=== PATIENT | male | born 1995 | race Caucasian/White ===

== ENCOUNTER 2019-08-24 22:02 | Emergency (ER) | payer SELFPAY ==
[2019-08-24] MEDS ORDERED: SULFAMETHOXAZOLE/TRIMETHOPRIM 800-160 MG TABLET PO ONE (23:08)
--- NOTE | 2019-08-24 23:37 | RADIOLOGY REPORT (SQ) ---
CLINICAL INDICATION: pain/swelling/?infection. . TECHNIQUE: 2 view(s) were obtained of the right knee. COMPARISON: None. FINDINGS: No acute displaced fracture is identified of the knee. Alignment appears anatomic. Joint spaces are within normal limits for age. Small joint effusion. Mild soft tissue swelling. Old posttraumatic change to the patellar tendon. IMPRESSION: No evidence of acute displaced fracture of the knee.
--- NOTE | 2019-08-25 00:08 | ER Document Report ---
HPI - HPI Time Seen by Provider: 08/24/19 23:05 Pain Level: 3 Notes: Otherwise healthy 24-year-old male presents with complaints of swelling and erythema to the right knee. Patient reports he had what appeared to be a pimple on the area and now there is redness. He does report he tried popping it and there is a slight amount of drainage. He denies development of any fevers, nausea, vomiting. He has never had an abscess or cellulitis previously. - ROS Systems Reviewed and Negative: Yes All other systems reviewed and negative - DERM Skin Color: Erythema - Right anterior knee Past Medical History - General Information source: Patient - Social History Smoking Status: Never Smoker Frequency of alcohol use: None Drug Abuse: None Family History: Reviewed & Not Pertinent Patient has homicidal ideation: No - Medical History Medical History: Negative Vertical Provider Document - CONSTITUTIONAL Notes: PHYSICAL EXAMINATION: GENERAL: Well-appearing, well-nourished and in no acute distress. HEAD: Atraumatic, normocephalic. EYES: Pupils equal round extraocular movements intact, conjunctiva are normal. ENT: Nares patent NECK: Normal range of motion LUNGS: No respiratory distress Musculoskeletal: Normal range of motion NEUROLOGICAL: Normal speech, normal gait. PSYCH: Normal mood, normal affect. SKIN: Erythema noted to anterior right knee. No jonnathan abscess. Course - Re-evaluation Re-evalutation: Patient appears well, nontoxic. X-ray negative. Patient does have an area of cellulitis to the anterior portion of his right knee. This was traced out with a surgical marker in the emergency department. He will be started on oral antibiotics. Patient given strict ED return precautions as outlined in his discharge instructions. Patient verbalizes understanding and agreement with thi s plan. - Vital Signs Vital signs: Temp Pulse Resp BP Pulse Ox 99.0 F 79 16 131/74 H 98 08/24/19 23:06 08/24/19 22:08 08/24/19 22:08 08/24/19 22:08 08/24/19 22:08 Discharge - Discharge Clinical Impression: Cellulitis Qualifiers: Site of cellulitis: unspecified site Qualified Code(s): L03.90 - Cellulitis, unspecified Condition: Stable Disposition: HOME, SELF-CARE Instructions: Trimethoprim-Sulfa ([facility]) Additional Instructions: The rash is likely due to infection of your skin. You need to take the antibiotics as prescribed. Do not stop even if the rash goes away until you have completed all the antibiotics. The area of redness was traced out here in the emergency department with a marking pen. You need to return to emergency department if the redness spreads outside of this area by more than 2 cm in any direction. You should also return if you develop fevers with temperature greater than 101, persistent vomiting, worsening pain, or have any other symptoms that are concerning to you. Prescriptions: Sulfamethoxazole/Trimethoprim [Bactrim Ds Tablet] 1 tab PO BID #14 tablet
[2019-08-25 00:52] VITALS: BP 130/70
== END 2019-08-25 00:49 | disposition home or self-care (01) ==
LOC: ER 22:02
DX: L03.115 Cellulitis of right lower limb (principal)
CPT/HCPCS: 99283